=== PATIENT | female | born 1970 | race Caucasian/White ===

== ENCOUNTER → 2023-09-16 06:27 | Day surgery (SDC) | payer BC, OTHER, SELFPAY | LOC: GI 06:27 | PROVIDERS: ATTENDING PHYSICIAN Internal Medicine Gastroenterology; FAMILY PHYSICIAN Family Medicine | DX: Z12.11 Encounter for screening for malignant neoplasm of colon (principal); D12.2 Benign neoplasm of ascending colon; D12.3 Benign neoplasm of transverse colon; K63.5 Polyp of colon; K62.1 Rectal polyp; K64.0 First degree hemorrhoids; R19.7 Diarrhea, unspecified; R63.4 Abnormal weight loss; K31.89 Other diseases of stomach and duodenum; R11.0 Nausea | CPT/HCPCS: 45385; 45380; 45381; 43239; 88305; 88342 ==

== ENCOUNTER → 2023-10-14 19:30 | Outpatient (REF) | payer BC, OTHER, SELFPAY | LOC: WDC 19:30 | PROVIDERS: ATTENDING PHYSICIAN Urology; FAMILY PHYSICIAN Family Medicine | DX: Z12.31 Encounter for screening mammogram for malignant neoplasm of breast (principal) | CPT/HCPCS: 77063; 77067 ==

== ENCOUNTER → 2023-12-10 07:46 | Outpatient (REF) | payer BC, OTHER, SELFPAY | LOC: RAD 07:46 | PROVIDERS: ATTENDING PHYSICIAN Obstetrics & Gynecology Gynecologic Oncology; FAMILY PHYSICIAN Family Medicine | DX: Z12.39 Encounter for other screening for malignant neoplasm of breast (principal); D07.2 Carcinoma in situ of vagina; N87.0 Mild cervical dysplasia; R10.30 Lower abdominal pain, unspecified; R63.4 Abnormal weight loss | CPT/HCPCS: 74177; Q9967 ==

== ENCOUNTER → 2024-01-23 10:48 | Outpatient (REF) | payer BC, OTHER, SELFPAY | LOC: MRI 3T 10:48 | PROVIDERS: ATTENDING PHYSICIAN Physician Assistant; FAMILY PHYSICIAN Family Medicine | DX: R63.4 Abnormal weight loss (principal) | CPT/HCPCS: 72197; 74183; A9575 ==